=== PATIENT | male | born 1955 | race Caucasian/White ===

== ENCOUNTER 2021-03-15 13:31 | Emergency (ER) | payer MEDICARE, MEDICAID ==
[~2021-03-15] VITALS: Ht 167.6 cm; Wt 70.5 kg
[2021-03-15 17:05] VITALS: BP 121/84
[2021-03-15] MEDS ORDERED: CEPH500C3 PO (17:10)
== END 2021-03-15 17:36 | disposition home or self-care (01) ==
LOC: EMS 13:39
DX: R22.1 Localized swelling, mass and lump, neck (principal); M54.2 Cervicalgia
CPT/HCPCS: 99283